=== PATIENT | male | born 1980 ===

== ENCOUNTER 2025-06-02 15:29 | Inpatient (IN) | payer OTHER ==
[~2025-06-02] VITALS: Ht 177.8 cm; Wt 76.7 kg
[2025-06-02 15:32] VITALS: BP 129/60
[2025-06-02] MEDS ORDERED: WELLBUTRIN SR150 MG PO (15:40)
[2025-06-02] MEDS ORDERED: GADOTERATE MEGLUMINE 10 MMOL/20 ML VIAL IV ONE (16:51)
[2025-06-02] MEDS ORDERED: diazePAM 10 MG/2 ML SYR IM ONE (18:00)
[2025-06-02] MEDS ORDERED: ACETAMINOPHEN 325 MG TAB PO PRN (19:35)
[2025-06-02] MEDS ORDERED: Acetaminophen/Hydrocodone 5 MG/325 MG TABLET PO PRN (19:35)
[2025-06-02] MEDS ORDERED: predniSONE 20 MG TAB PO SCH (20:15)
[2025-06-02] MEDS ORDERED: Cyclobenzaprine Hydrochlorid 10 MG TAB PO SCH (20:16)
[2025-06-02 21:37] VITALS: BP 136/69
[2025-06-03] VITALS: BP 110/63
[2025-06-03 06:26] LABS: BASO # 0.0 10*3/uL (0.0-0.1); BASO % 0.2 % (0.0-1.0); EOS # 0.0 10*3/uL (0.0-0.4); EOS % 0.0 % (1.0-4.0); MEAN CELL VOLUME 90.1 fl (80.0-94.0); MEAN CORPUSCULAR HGB 29.6 pg (27.0-31.0); MEAN PLATELET VOLUME 10.7 fl (9.6-12.3); MONO # 0.1 10*3/uL (0.1-1.0); MONO % 0.6 % (3.0-9.0); NEUT # 10.2 10*3/uL (2.3-7.9); NEUT % 89.6 % (47.0-73.0); NUCLEATED RED BLOOD CELL 0.0 % (0.0-0.0); NUCLEATED RED BLOOD CELL 0.0 10*3/uL (0.0-0.0); PLATELET COUNT AUTOMATED 332 10*3/uL (130-400); RED CELL DISTRI WIDTH 12.1 % (0-14.5)
[2025-06-03 06:41] LABS: BUN 14 mg/dl (9-23); LDL CHOLESTEROL 112 mg/dL (9-159); SGPT/ALT 37 U/L (5-49)
[2025-06-03 08:00] VITALS: BP 100/54
[2025-06-03 12:00] VITALS: BP 103/51
[2025-06-03] MEDS ORDERED: ACETAMINOPHEN 60 ML IV PRN (12:50)
[2025-06-03] MEDS ORDERED: Cyclobenzaprine Hydrochlorid 10 MG TAB PO SCH (14:00)
[2025-06-03 16:00] VITALS: BP 103/55
[2025-06-03 20:00] VITALS: BP 104/54
[2025-06-04] VITALS: BP 108/42
[2025-06-04 06:39] LABS: BUN 21 mg/dl (9-23); SGPT/ALT 32 U/L (5-49)
[2025-06-04 08:00] VITALS: BP 108/64
[2025-06-04 12:00] VITALS: BP 108/54
[2025-06-04 16:00] VITALS: BP 109/66
[2025-06-04 20:00] VITALS: BP 11/65
[2025-06-05] VITALS: BP 141/64
[2025-06-05 08:00] VITALS: BP 105/59
[2025-06-05 12:00] VITALS: BP 110/71
[2025-06-05] MEDS ORDERED: CYCLOBENZAPRINE10 MG PO (14:00)
[2025-06-05] MEDS ORDERED: PREDNISONE10 MG PO (14:00)
== END 2025-06-05 15:35 | DRG 347 ==
LOC: ED 15:29 → 5E 19:15 → EDHOLD 19:15 → 5E 20:56 → 4E 06-03 13:52
PROVIDERS: ADMIT Internal Medicine; ATTEND Internal Medicine
DX: M54.16 Radiculopathy, lumbar region (principal); S09.8XXA Other specified injuries of head, initial encounter; M41.80 Other forms of scoliosis, site unspecified; M47.816 Spondylosis without myelopathy or radiculopathy, lumbar region; R73.9 Hyperglycemia, unspecified; D72.829 Elevated white blood cell count, unspecified; M51.34 Other intervertebral disc degeneration, thoracic region; M48.56XA Collapsed vertebra, not elsewhere classified, lumbar region, initial encounter for fracture; Z79.899 Other long term (current) drug therapy; Z82.61 Family history of arthritis; Z82.49 Family history of ischemic heart disease and other diseases of the circulatory system; W18.39XA Other fall on same level, initial encounter; Y93.89 Activity, other specified; Y92.89 Other specified places as the place of occurrence of the external cause; Y99.8 Other external cause status